=== PATIENT | male | born 1955 | race Caucasian/White ===

== ENCOUNTER 2023-09-11 12:13 | Day surgery (SDC) | payer OTHER ==
[2023-09-10 13:27] VITALS: BMI 30.5
[2023-09-11] MEDS ORDERED: PROPOFOL 40 ML ONE (14:44)
[2023-09-11] MEDS ORDERED: Lidocaine 1% PF 5 ML VIAL ONE (14:44)
[2023-09-11] MEDS ORDERED: PROPOFOL 20 ML ONE ×2 (15:17→15:27)
[2023-09-11] MEDS ORDERED: Ondansetron ODT 4 MG TAB ONE (16:50)
== END 2023-09-11 17:15 | disposition home or self-care (01) ==
LOC: CSHSDC 12:13
PROVIDERS: ATTEND Surgery
PROC: 0DJD8ZZ Inspection of Lower Intestinal Tract, Via Natural or Artificial Opening Endoscopic (ICD-10-PCS; principal; 2023-09-11)
DX: Z12.11 Encounter for screening for malignant neoplasm of colon (principal); K57.30 Diverticulosis of large intestine without perforation or abscess without bleeding; K64.2 Third degree hemorrhoids
CPT/HCPCS: J2704; Q0162